=== PATIENT | male | born 1960 | race Caucasian/White ===

== ENCOUNTER 2019-04-11 10:20 | Emergency (ER) | payer OTHER ==
[2019-04-11 10:46] VITALS: BP 135/72
--- NOTE | 2019-04-11 11:16 | EDM.PDOC ---
ED HPI GENERAL MEDICAL PROBLEM - General Chief Complaint: Lower Extremity Injury/Pain Stated Complaint: RIGHT KNEE PAIN Time Seen by Provider: 04/11/19 11:00 Source of Information: Reports: Patient History Limitations: Reports: No Limitations - History of Present Illness INITIAL COMMENTS - FREE TEXT/NARRATIVE: 58 yo male presents to the ER two days after injuring right knee. He was stepping out of boat and twisted knee. He was able to ambulate after injury without difficulty but as the day progressed he had more pain and swelling. He is concerned with his ability to work tomorrow. generally healthy Right Knee Pain Score (Numeric/FACES): 1 - Related Data Allergies Allergy/AdvReac Type Severity Reaction Status Date / Time atorvastatin Allergy Other Verified 06/18/17 14:22 lovastatin Allergy Other Verified 06/18/17 14:22 rosuvastatin Allergy Other Verified 06/18/17 14:22 Home Meds: Home Meds Fenofibrate 1 tab PO DAILY 06/18/17 [History] Lisinopril 1 tab PO DAILY 06/18/17 [History] Past Medical History Cardiovascular History: Reports: High Cholesterol, Hypertension Musculoskeletal History: Reports: Other (See Below) Other Musculoskeletal History: R knee pain - Past Surgical History Musculoskeletal Surgical History: Reports: Other (See Below) Other Musculoskeletal Surgeries/Procedures:: back surgery Social & Family History - Tobacco Use Smoking Status *Q: Never Smoker - Caffeine Use Caffeine Use: Reports: Coffee - Recreational Drug Use Recreational Drug Use: No Review of Systems - Review of Systems Review Of Systems: See Below Constitutional: Denies: Chills, Fever Respiratory: Denies: Shortness of Breath, Wheezing Cardiovascular: Denies: Chest Pain ED EXAM, GENERAL - Physical Exam Exam: See Below Exam Limited By: No Limitations General Appearance: Alert, WD/WN, No Apparent Distress Respiratory/Chest: No Respiratory Distress Extremities: Joint Swelling (mild edemea without erythema or echemosis of right knee. ROM mildly limited by pain. knee stable) Course - Vital Signs Last Recorded V/S: Last Vital Signs Temp 36.2 C 04/11/19 10:48 Pulse 71 04/11/19 10:48 Resp 16 04/11/19 10:48 BP 135/72 04/11/19 10:48 Pulse Ox 96 04/11/19 10:48 - Orders/Labs/Meds Orders: Active Orders 24 hr Category Date Time Status Knee 3V Rt [CR] Stat Exams 04/11/19 11:15 Ordered - Radiology Interpretation Free Text/Narrative:: knee x-ray mild effusion without acute fracture Departure - Departure Time of Disposition: 11:47 Disposition: Home, Self-Care 01 Condition: Good Clinical Impression: Knee injury Qualifiers: Encounter type: initial encounter Laterality: right Qualified Code(s): S89.91XA - Unspecified injury of right lower leg, initial encounter - Discharge Information *PRESCRIPTION DRUG MONITORING PROGRAM REVIEWED*: Not Applicable *COPY OF PRESCRIPTION DRUG MONITORING REPORT IN PATIENT BENITO: Not Applicable Instructions: Knee Sprain, Adult, [id number] Referrals: Brando Gonzalez MD [Primary Care Provider] - Forms: ED Department Discharge Additional Instructions: see in ORthopedics tomorrow, call them in the morning to make appt ice as much as possible activity as tolerated Aleve for pain control - My Orders Last 24 Hours: My Active Orders 04/11/19 11:15 Knee 3V Rt [CR] Stat - Assessment/Plan Last 24 Hours: My Active Orders 04/11/19 11:15 Knee 3V Rt [CR] Stat
--- NOTE | 2019-04-11 11:59 | CRLCR ---
HISTORY: Trauma. TECHNIQUE: Three views of the right knee. COMPARISON: 06/22/2017. FINDINGS: There is no acute fracture or malalignment. Mild degenerative changes with mild patellar osteophyte formation. There is likely a small amount of suprapatellar joint fluid. Spurring at the quadriceps attachment to superior pole of patella. Small bone island within the medial femoral condyle. IMPRESSION: 1. No acute fracture or malalignment. 2. Mild degenerative changes. 3. Small amount of suprapatellar joint fluid. Dictated by Kishore Caballero MD @ 04/11/2019 11:58:32 AM Dictated by: Kishore Caballero MD @ 04/11/2019 11:58:35 (Electronically Signed)
== END 2019-04-11 11:55 | disposition home or self-care (01) ==
LOC: JP.ED 10:20
DX: S89.91XA Unspecified injury of right lower leg, initial encounter (principal); E78.00 Pure hypercholesterolemia, unspecified; I10 Essential (primary) hypertension; Z88.8 Allergy status to other drugs, medicaments and biological substances; Z79.899 Other long term (current) drug therapy; X50.1XXA Overexertion from prolonged static or awkward postures, initial encounter
CPT/HCPCS: 73562-RT; 99283-25

== ENCOUNTER 2019-06-13 08:15 | Day surgery (SDC) | payer OTHER ==
[~2019-06-13 08:15] MED LIST: Bupivacaine 0.25% 10 ML SDV ONE; Dexamethasone 4 MG/ML SDV ONE; Glycopyrrolate 0.2 MG/ML 5 ML MDV ONE; Neostigmine Methylsulfate 1 MG/ML 5 ML Syringe ONE; Ondansetron 4 MG/2 ML SDV ONE; Propofol 200 MG/20 ML SDV ONE; Rocuronium 50 MG/5 ML Vial ONE; Succinylcholine 200 MG/10 ML MDV ONE; fentaNYL 250 MCG/5 ML SDV ONE
[2019-06-13] MEDS ORDERED: Nozin Nasal Sanitizer NASBOTH ONE (08:45)
[2019-06-13] MEDS ORDERED: ceFAZolin 1 GM in Premix Bag 1 BAG IV ONE (09:00)
[2019-06-13] MEDS ORDERED: Lactated Ringers 1,000 ML IV SCH (09:15)
[2019-06-13] MEDS ORDERED: methylPREDNISolone Acetate 80 MG/ML SDV ONE (10:10)
[2019-06-13] MEDS ORDERED: fentaNYL 250 MCG/5 ML SDV ONE (10:29)
[2019-06-13 12:12] VITALS: BP 127/82; PULSE 58
--- NOTE | 2019-06-14 15:49 | OR ---
DATE OF PROCEDURE: 06/13/2019 PREOPERATIVE DIAGNOSIS: Lateral meniscus tear, right knee. POSTOPERATIVE DIAGNOSES: 1. Lateral meniscus tear, right knee. 2. Chondromalacia, lateral femoral condyle, grade 4. 3. Synovitis, right knee. PROCEDURES: 1. Arthroscopy, right knee, with partial lateral meniscectomy. 2. Chondroplasty, lateral femoral condyle. 3. Minimal synovectomy. ANESTHESIA: General. INDICATIONS: David is a 58-year-old gentleman with a history of persistent right knee pain. Exam and imaging are consistent with a tear of the lateral meniscus near the posterior horn. He had persistent symptoms and now presents for arthroscopic evaluation with debridement, partial lateral meniscectomy. Risks, benefits, potential complications of the procedure were discussed. DESCRIPTION OF PROCEDURE: After adequate anesthesia was obtained, patient was placed supine with a tourniquet about the right upper thigh. Right leg was prepped and draped in a sterile fashion. Leg was exsanguinated and tourniquet inflated to 300 mmHg. Standard inferior, medial, and lateral portals were established. The scope was introduced. Some mild oozing was present from the port sites and from the synovium intraoperatively. This could not be controlled with pressure from the scope and tourniquet was eventually released as it was thought that there was more of a venous effect. Patellofemoral joint was inspected. This revealed some minor softening in the central portion of the patella. Some hypertrophic synovium was present with inflammation within the knee, particularly in the parapatellar region. Sweeping down into the medial compartment, a loose fragment of articular cartilage was present. This was removed with a shaver. Medial meniscus was inspected and was found to be intact as well as probed with no evidence of instability. Intercondylar notch revealed intact ACL and PCL. Lateral compartment revealed a horizontal cleavage tear of the lateral meniscus around the mid and posterior body. A slightly more macerated tear was present in the posterior horn at the root attachment. Loose articular fragments were present within the lateral compartment as well. Using a combination of the shaver and the basket punch, the meniscus was trimmed back to a stable margin. All loose fragments were removed. Further evaluation of the joint revealed an area of grade 4 chondromalacia with central articular defect down to bone as well as loose articular flaps around the periphery of the defect. Shaver was used to perform a chondroplasty removing the loose flaps of articular cartilage from the periphery and performing a mild abrasion chondroplasty in the central portion of the lesion. All loose fragments were removed. Knee was inspected once again. Portions of the synovium were debrided during the procedure for better visualization. No other abnormalities were identified. The knee was drained. Scope was withdrawn. Port sites were closed in a standard fashion, and a sterile dressing was applied. The patient tolerated the procedure well. There were no complications, taken from the operating room in a stable condition. Francisco Simons MD /[id number]
== END 2019-06-13 12:35 | disposition home or self-care (01) ==
LOC: JP.SDS 08:15
PROVIDERS: ATTEND Specialist
DX: S83.281A Other tear of lateral meniscus, current injury, right knee, initial encounter (principal); M65.861 Other synovitis and tenosynovitis, right lower leg; M94.261 Chondromalacia, right knee; I10 Essential (primary) hypertension; E78.5 Hyperlipidemia, unspecified; E66.9 Obesity, unspecified; K21.9 Gastro-esophageal reflux disease without esophagitis; X58.XXXA Exposure to other specified factors, initial encounter; Z88.8 Allergy status to other drugs, medicaments and biological substances; Z68.39 Body mass index [BMI] 39.0-39.9, adult; Z87.891 Personal history of nicotine dependence; Z79.899 Other long term (current) drug therapy
CPT/HCPCS: 29881; A9270; J0690; J1040; J1100; J2405; J2704; J2710; J3010; J3490; J7120; J0330

== ENCOUNTER 2019-10-05 05:41 | Day surgery (SDC) | payer OTHER ==
[2019-10-05] MEDS ORDERED: Nozin Nasal Sanitizer NASBOTH ONE (06:17)
[2019-10-05] MEDS ORDERED: Bupivacaine 0.5% 30 ML SDV ONE ×2 (06:40→07:32)
[2019-10-05] MEDS ORDERED: Lactated Ringers 1,000 ML IV SCH (06:42)
[2019-10-05] MEDS ORDERED: ceFAZolin 2 GM in Sodium Chloride 0.9% 50 ML IV ONE (06:42)
[2019-10-05] MEDS ORDERED: Rocuronium 50 MG/5 ML Vial ONE (07:29)
[2019-10-05] MEDS ORDERED: Succinylcholine 200 MG/10 ML MDV ONE (07:29)
[2019-10-05] MEDS ORDERED: fentaNYL 250 MCG/5 ML SDV ONE (07:29)
[2019-10-05] MEDS ORDERED: Ondansetron 4 MG/2 ML SDV ONE (07:29)
[2019-10-05] MEDS ORDERED: Propofol 200 MG/20 ML SDV ONE (07:29)
[2019-10-05] MEDS ORDERED: Dexamethasone 4 MG/ML SDV ONE (07:29)
[2019-10-05] MEDS ORDERED: Glycopyrrolate 0.2 MG/ML 5 ML MDV ONE (07:29)
[2019-10-05] MEDS ORDERED: Neostigmine Methylsulfate 1 MG/ML 5 ML Syringe ONE (07:29)
[2019-10-05] MEDS ORDERED: Lactated Ringers 1,000 ML ONE (09:46)
[2019-10-05] MEDS ORDERED: Morphine 2 MG/ML Syringe IVPUSH ONE (11:00)
[2019-10-05] MEDS ORDERED: Acetaminophen/oxyCODONE 325-5 MG Tab PO ONE (11:44)
[2019-10-05 12:30] VITALS: BP 109/85; PULSE 84
--- NOTE | 2019-10-12 14:53 | OR ---
DATE OF PROCEDURE: 10/05/2019 SURGEON: Francisco Simons MD PREOPERATIVE DIAGNOSIS: Right rotator cuff tear, complete. POSTOPERATIVE DIAGNOSIS: Right rotator cuff tear, complete and retracted. PROCEDURE: Arthroscopy, right shoulder, with subacromial decompression acromioplasty and open rotator cuff repair. ANESTHESIA: Interscalene block with general. INDICATIONS: David is a 59-year-old gentleman with a history of bilateral shoulder pain. He has documented rotator cuff tears on both shoulders. The right being his dominant arm is more symptomatic at this point. He now presents for arthroscopy of the right shoulder with rotator cuff repair and possible open rotator cuff repair with the addition of a possible soft tissue augmentation. Risks, benefits, potential complications of the procedure were discussed. DESCRIPTION OF PROCEDURE: After adequate anesthesia was obtained, the patient was placed in the lateral decubitus position and secured with the beanbag positioner. Right shoulder and arm were prepped and draped in a sterile fashion and 10 pounds of traction was placed in the shoulder traction unit. A standard posterior portal was established and the scope was introduced. The glenohumeral joint was inspected. This revealed a small loose body within the joint. The humeral head and articular surface of the glenoid were intact with some mild scuffing. Labrum was intact. Subscapularis was intact. Biceps tendon was also intact. Rotator cuff showed complete thickness tear with moderate retraction. Anterior portal was established and the loose body was removed. The scope was then repositioned into the subacromial space. Moderate amount of bursitis and impingement was noted on the acromion. A lateral portal was established and using combination of the ablation wand and a renetta, acromioplasty was performed removing approximately 4 mm of the anterolateral aspect and bevelling this posteriorly and medially. Level of the cuff tear was also evaluated. This was found to be retracted and fairly tight and difficult to mobilize. Using a combination of the ablation wand and elevators, the cuff was mobilized and able to be brought out over the footprint. Integrity of the cuff was a bit thin and more deficient anteriorly than posteriorly. It was thought that soft tissue augmentation would be beneficial in this case and decision made to proceed with an open repair. The scope was withdrawn and the shoulder was drained. The lateral portal was extended down to the deltoid muscle. Deltoid was split in line with its fibers and a self-retaining retractor was placed. Level of the acromioplasty was evaluated and was good. The superior surface of the greater tuberosity was debrided with a rongeur. A FiberWire suture was placed in a locking fashion into the cuff tendon and used to mobilize the tendon laterally. The arm was rotated externally and the cuff mobilized as far anterior and lateral as possible. Two Mitek Healix anchors were placed in the tuberosity just slightly off the edge of the articular surface. All 4 limbs of each of the anchors were then brought up through the tendon. These were then tied down sequentially from posterior to anterior securing the tendon in place. Additional fixation was obtained with a lateral suture bridge using a knotless anchor off the edge of the tuberosity and securing 1 pair of sutures from each of the anterior and posterior anchors into the knotless anchor. This left a slight defect anteriorly with very thin cuff. The dermal patch was cut to fit over this area. A suture was placed at the apex of the patch and passed through the tendon medial to the repair. This was used to pull the patch down onto the cuff. This was tied in place and then a running suture was used around the posterior edge of the patch, securing it onto the rotator. This was brought out around to the lateral portion. Once it was brought out to the edge of the deficient cuff, a suture anchor was placed and the sutures from the anchor were then used to secure the patch over the edge of the tendon without any flaps or loose edges. This repair was then continued around anteriorly back to the superior edge. This resulted in complete coverage of the footprint and reinforcement of the repair. The deltoid was then repaired back in a [id number] fashion with #1 Vicryl. Skin was closed with 2-0 Vicryl and a running 3-0 Monocryl. Port sites were closed with Monocryl. Steri-Strips were then applied. Sterile dressing was placed. The patient tolerated the procedure very well. There were no complications. He was taken from the recovery room with a SlingShot sling in place. Francisco Simons MD /[id number]
== END 2019-10-05 13:00 | disposition home or self-care (01) ==
LOC: JP.SDS 05:41
PROVIDERS: ATTEND Specialist
DX: S46.011A Strain of muscle(s) and tendon(s) of the rotator cuff of right shoulder, initial encounter (principal); S46.012A Strain of muscle(s) and tendon(s) of the rotator cuff of left shoulder, initial encounter; M24.011 Loose body in right shoulder; M75.51 Bursitis of right shoulder; M25.811 Other specified joint disorders, right shoulder; N39.0 Urinary tract infection, site not specified; I10 Essential (primary) hypertension; E78.5 Hyperlipidemia, unspecified; K21.9 Gastro-esophageal reflux disease without esophagitis; H91.93 Unspecified hearing loss, bilateral; E66.9 Obesity, unspecified; W19.XXXA Unspecified fall, initial encounter; Z87.891 Personal history of nicotine dependence; Z79.899 Other long term (current) drug therapy; Z88.8 Allergy status to other drugs, medicaments and biological substances; Z98.890 Other specified postprocedural states
CPT/HCPCS: 23410; A9270; C1713; J0330; J0690; J1100; J2270; J2405; J2704; J2710; J3010; J3490; J7050; J7120